=== PATIENT | female | born 1940 | race Caucasian/White ===

== ENCOUNTER 2020-02-27 10:32 | Outpatient (CLI) | payer OTHER, SELFPAY ==
[2020-02-27 11:16] LABS: Alanine Aminotransferase 38 U/L (4-35); Albumin Level 3.9 g/dL (3.5-5.1); Alkaline Phosphatase 126 U/L (38-126); Anion Gap 10.8 mmol/L (7-16); Aspartate Amino Transferase 47 U/L (14-36); Bilirubin,Total 0.4 mg/dL (0.2-1.3); Blood Urea Nitrogen 23 mg/dL (7-17); Carbon Dioxide 27 mmol/L (22-30); Chloride 105 mmol/L (98-107); Cholesterol 236 mg/dL (0-200); Estimated Glomerular Filt Rate 48; Glucose 108 mg/dL (65-105); HDL Direct 44 mg/dL; Potassium 3.8 mmol/L (3.4-5.0); Sodium 139 mmol/L (137-145); Triglycerides 198 mg/dL (<150)
[2020-02-27 11:20] LABS: Hemoglobin A1C 5.7 % (<5.7)
[2020-02-27 11:27] LABS: LDL Cholesterol Direct 146 mg/dL
[2020-02-27 11:41] LABS: Creatinine Urine 101.7 mg/dL
[2020-02-27 11:47] LABS: MALB Creatinine Ratio 43.3 mg/g (0-30)
[2020-02-27 11:58] LABS: Vitamin D 25 Hydroxy 50.9 ng/mL
== END 2020-02-27 10:33 | disposition home or self-care (01) ==
LOC: ANHLAB 10:33
PROVIDERS: PCP Internal Medicine; Visit Provider Nurse Practitioner
DX: E11.9 Type 2 diabetes mellitus without complications (principal); E78.5 Hyperlipidemia, unspecified; E55.9 Vitamin D deficiency, unspecified
CPT/HCPCS: 36415; 80053; 80061; 82043; 82306; 83036

== ENCOUNTER 2021-02-05 10:16 | Emergency (ER) | payer OTHER, SELFPAY ==
[2021-02-05] VITALS (9 sets, daily range): BP systolic 137–159; BP diastolic 56–75; PULSE 65–81; RESP 18–29; TEMP 37.1; O2SAT 94–98
--- NOTE | ~2021-02-05 | CT_ITS ---
EXAMINATION: CT abdomen pelvis wo con EXAM DATE: 02/05/2021 12:16 INDICATION: Abdominal pain. TECHNIQUE: Spiral CT of the abdomen and pelvis was performed without contrast. Axial, coronal and s agittal images of the abdomen and pelvis were reviewed. The dose-length product (DLP) for this exami [facility] was 261.45 mGy-cm. The exposure was tailored according to patient size (auto mA exposure cont rol), and iterative reconstruction (ASIR) was used as additional dose reduction technique. Comparison is made to prior examination from 09/29/2014. FINDINGS: Pancreatic head and unsafe calcifications, chronic pancreatitis. The liver, spleen, adrena l glands and pancreas are unremarkable. Mild gallbladder distention with hazy pericholecystic fat pl anes. Possible cholecystitis. No calcified cholelithiasis. Consider ultrasound for further evaluation . There is no nephrolithiasis or hydronephrosis. Scattered renal lesions consistent with cysts, larg est exophytic off the left kidney measuring 2.3 cm. The uterus is unremarkable. The bladder is unr emarkable. There is no retroperitoneal or pelvic lymphadenopathy. There is moderate scattered lyndsay riosclerotic disease. There are no findings to suggest appendicitis. There is mild to moderate sigmoid colonic diverticulos is. There is no adjacent inflammatory change to suggest diverticulitis. There is small sliding gastr oesophageal hiatal hernia. There is expected amount of colonic stool. No free intraperitoneal gas. There is chronic small left pleural effusion with pleural thickening and adjacent round atelecta sis. There are no osteoblastic or osteolytic lesions identified. IMPRESSION: 1. Indistinct gallbladder wall, possible acute cholecystitis. Recommend ultrasound. 2. Mild to moderate sigmoid diverticulosis. 3. Chronic small left pleural effusion, adjacent round atelectasis. 4. Chronic pancreatitis. Reviewed, dictated and finalized at location A. IMPRESSION: 1. Indistinct gallbladder wall, possible acute cholecystitis. Recommend ultras ound. 2. Mild to moderate sigmoid diverticulosis. 3. Chronic small left pleural effusion, adjacent round atelectasis. 4. Chronic pancreatitis.
--- NOTE | ~2021-02-05 | US_ITS ---
EXAMINATION: US right upper quadrant EXAM DATE: 02/05/2021 13:43 INDICATION: Abdominal pain, onset yesterday. Abnormal ultrasound on CT. TECHNIQUE: Multiple grayscale and Doppler images of the abdomen right upper quadrant were obtained (b y a technologist who performed the scan) and subsequently reviewed. There is no prior study for senait wright. FINDINGS: The pancreatic head and body are normal in appearance. The pancreatic tail is not visualized. The l iver has normal echogenicity and contour. There are no focal liver lesions identified. There is no evidence of intrahepatic biliary duct dilation. Portal venous flow was seen in the hepatopedal, nor mal direction and has normal Doppler waveform. No right-sided hydronephrosis. Common bile duct measures 4-5 mm, which is normal. The gallbladder wall is 3 mm in thickness, with ex pected amount of distention. This is nonspecific finding. No sonographic evidence of pericholecystic fluid. There is no cholelithiases. Technologist performing exam reports patient did not demonstrate sonographic Johnson's sign. Please note that this sign is less reliable in patients who have received pain medication. IMPRESSION: Gallbladder wall upper limits of normal in thickness. No cholelithiasis, pericholecystic fluid or sonographic Johnson sign demonstrated. Reviewed, dictated and finalized at location A. IMPRESSION: Gallbladder wall upper limits of normal in thickness. No cholelithi asis, pericholecystic fluid or sonographic Johnson sign demonstrated.
--- NOTE | ~2021-02-05 | XR_ITS ---
EXAMINATION: XR chest 2V EXAM DATE: 02/05/2021 12:07 INDICATION: Shortness of air. TECHNIQUE: Frontal and lateral projections of the chest obtained and reviewed. There is no prior sherwin dy for comparison. FINDINGS: The lungs are clear. There are no pleural effusions. Cardiac silhouette is prominent but magnified on this AP technique. There is no pneumothorax suspected. There is aortic arterioscleros is. There are bony degenerative changes. Right axillary surgical clips. Some chronic hyperinflation. IMPRESSION: 1. No acute cardiopulmonary findings. 2. Hyperinflation. Reviewed, dictated and finalized at location A.
[2021-02-05 10:58] LABS: Basophils Absolute Auto 0.1 K/mm3 (0.0-0.1); Eosinophils Absolute Auto 0.2 K/mm3 (0-0.3); Eosinophils Percent Auto 3.5 % (0-4.4); Hematocrit 36.9 % (37.0-47.0); Immature Granulocyte Absolute 0.04 K/mm3 (0.00-0.031); Immature Granulocyte Percent A 0.8 % (0-0.5); Lymphocytes Absolute Auto 0.86 K/mm3 (0.9-3.2); Lymphocytes Percent Auto 17.8 % (18.3-44.2); Mean Corpuscular HGB Conc 32.5 g/dl (32-36); Mean Corpuscular Hemoglobin 29.9 pg (26-34); Mean Corpuscular Volume 91.8 fl (80-100); Mean Platelet Volume 10.8 fl (7.4-10.4); Monocytes Absolute Auto 0.5 K/mm3 (0.1-0.6); Monocytes Percent Auto 10.8 % (2.6-8.5); Neutrophils Absolute Auto 3.2 K/mm3 (1.3-6.7); Neutrophils Percent Auto 66.1 % (45.5-73.1); Platelet Count Result 187 k/mm3 (150-375); Red Blood Count 4.02 M/mm3 (4.2-5.4); White Blood Count 4.8 K/mm3 (4.5-10.0)
[2021-02-05 11:13] LABS: Alanine Aminotransferase 31 U/L (4-35); Alkaline Phosphatase 161 U/L (38-126); Anion Gap 9 mmol/L (8-16); Aspartate Amino Transferase 34 U/L (14-36); Bilirubin,Total 0.4 mg/dL (0.2-1.3); Blood Urea Nitrogen 40 mg/dL (7-17); Calcium 9.4 mg/dL (8.4-10.2); Carbon Dioxide 24 mmol/L (22-30); Chloride 106 mmol/L (98-107); Estimated Glomerular Filt Rate 33; Glucose 102 mg/dL (65-105); Lipase 272 U/L (23-300); Potassium 4.5 mmol/L (3.4-5.0); Sodium 139 mmol/L (137-145)
--- NOTE | 2021-02-05 11:59 | ED.ABDPAIN ---
HPI - Abdominal Pain General Chief Complaint: Abdominal Pain Stated Complaint: L ABD PAIN Time Seen by Provider: 02/05/21 10:25 History of Present Illness HPI narrative: Patient is an 80-year-old female who presents ER with left-sided abdominal pain. Beginning over the last day. Feels like she needs to defecate but cannot. She also feels like it is pushing up on her diaphragm making it more difficult for her to breathe. No runny nose or sore throat or productive cough. No diarrhea. She has no nausea or vomiting. Has not found any alleviating factors. Related Data Home Medications Medication Instructions Recorded Confirmed aspirin 81 mg tablet,delayed 81 mg PO DAILY 07/11/19 07/31/19 release candesartan 02/05/21 carvedilol 02/05/21 hydrochlorothiazide 02/05/21 pantoprazole PO 02/05/21 simvastatin mg 02/05/21 sitagliptin [Januvia] mg 02/05/21 ursodiol 02/05/21 Allergies Allergy/AdvReac Type Severity Reaction Status Date / Time metformin Allergy Unknown Diarrhea Verified 02/05/21 10:36 Review of Systems Review of Systems: All systems reviewed & are unremarkable except as noted in HPI and below Constitutional: Constitutional: Denies chills, Denies fever(s) and Denies weakness ENT: Denies nasal congestion and Denies sore throat Cardiovascular: Cardiovascular: Denies chest pain and Denies radiating jaw, neck or arm pain Respiratory: Respiratory: Denies cough, Reports dyspnea and Denies wheezing Gastrointestinal: Gastrointestinal: Reports abdominal pain, Reports bloating, Reports constipation, Denies nausea and Denies vomiting [facility] Past Medical History Medical History (Updated 02/05/21 @ 14:13 by Thiago Mendieta MD) Chronic atrial fibrillation, unspecified CKD (chronic kidney disease), stage III COPD (chronic obstructive pulmonary disease) Essential hypertension Gastroesophageal reflux disease without esophagitis Mixed hyperlipidemia Panlobular emphysema Primary biliary cirrhosis Surgical History Surgical History (Updated 02/05/21 @ 12:05 by Thiago Mendieta MD) History of right mastectomy History of right-sided carotid endarterectomy Family History Family History (Updated 02/21/16 @ 23:19 by DOCTOR UNKNOWN) Sibling Family history of blood dyscrasia Cerebrovascular accident Family history of malignant neoplasm Patient's sister is Father Cerebrovascular accident Patient's father is Mother Family history of diabetes mellitus in first degree relative Patient's mother is Social History Social History Smoking packs per day: 1 Smoking cigarettes per day: 20.0 Years smoked: 65 Smoking pack-years: 65.00 Smoking status: Current every day smoker Tobacco type: cigarettes Alcohol intake: never Gender identity (if verbalized by the patient): Female Exam Narrative: Exam Narrative: GENERAL: Well-appearing, well-nourished, and in no acute distress. HEAD: Normocephalic, atraumatic. ENT: Mucous membranes moist. CHEST: Clear to auscultation. No respiratory distress. HEART: Regular rate and rhythm. Normal peripheral pulses. ABDOMEN: Soft, mild left mid abdominal tenderness with voluntary guarding, nondistended. EXTREMITIES: Normal range of motion. No edema. SKIN: Warm, dry, no rash. NEURO: Alert and oriented x3. PSYCH: Normal mood and affect. Course Course Emergency Course: Patient informed of results. Discharge home. Recommend increase water intake. Vital Signs Vital signs: Vital Signs Temperature 98.7 F 02/05/21 10:29 Pulse Rate 81 02/05/21 10:29 Respiratory Rate 18 02/05/21 10:29 Blood Pressure 153/67 H 02/05/21 10:29 Pulse Oximetry 95 02/05/21 10:29 Temperature 98.7 F 02/05/21 10:29 Pulse Rate 73 02/05/21 11:46 Respiratory Rate 22 H 02/05/21 11:46 Blood Pressure 137/56 L 02/05/21 11:46 Pulse Oximetry 94 0
--- NOTE | 2021-02-05 12:00 | PC.NURSE ---
Pt unable to provide urine sample at this time
[2021-02-05 13:11] LABS: Add Urine Microscopic? YES; Appearance Urine Clear (Clear); Bilirubin Urine Negative (Negative); Blood Urine Negative (Negative); Color Urine Yellow (Yellow); Glucose Urine UA Negative (Negative); Ketones Urine Negative (Negative); Leukocyte Esterase Ur Negative LEU/UL (Negative); Mucus Urine Rare /lpf; Nitrate Urine Negative (Negative); Protein Urine Negative (Negative); RBC Urine 0-2 /hpf (0-2); Specific Grav Ur 1.015 (1.001-1.035); Squamous Epithelial Cell Urine Rare /hpf (Few); Urobilinogen Urine Negative mg/dL (<2.0); WBC Urine 0-3 /hpf
== END 2021-02-05 14:41 | disposition home or self-care (01) ==
PROVIDERS: Emergency Provider Emergency Medicine; PCP Internal Medicine
DX: R10.9 Unspecified abdominal pain (principal); K57.30 Diverticulosis of large intestine without perforation or abscess without bleeding; K86.1 Other chronic pancreatitis; I48.91 Unspecified atrial fibrillation; J44.9 Chronic obstructive pulmonary disease, unspecified; I12.9 Hypertensive chronic kidney disease with stage 1 through stage 4 chronic kidney disease, or unspecified chronic kidney disease; N18.30 Chronic kidney disease, stage 3 unspecified; E78.5 Hyperlipidemia, unspecified; K21.9 Gastro-esophageal reflux disease without esophagitis
CPT/HCPCS: 36415; 71046; 74176; 76705; 80053; 81001; 83690; 85025; 99284

== ENCOUNTER 2022-10-31 15:39 | Observation (INO) | payer OTHER, SELFPAY ==
[2022-10-31] VITALS (20 sets, daily range): BP systolic 137–189; BP diastolic 66–86; PULSE 74–103; RESP 13–24; TEMP 36.6; O2SAT 96–100; BMI 20.6
--- NOTE | ~2022-10-31 | XR_ITS ---
EXAMINATION: XR chest 2V Exam Date/Time: 10/31/2022 16:47 CDT HISTORY: weakness Comparison: 02/05/2021. RESULT: Lines, tubes, and devices: Right axillary clips. Lungs and pleura: Senescent changes. Cardiomediastinal silhouette: Stable. Cardiomegaly. Other: No acute osseous or upper abdominal finding. IMPRESSION: No acute cardiopulmonary process. Reviewed, dictated and finalized at location K.
--- NOTE | ~2022-10-31 | CT_ITS ---
EXAMINATION: CT brain wo con DATE: 10/31/2022 16:57 INDICATION: fall . TECHNIQUE: Computed tomography (CT) of the head was performed without intravenous contrast. The mA wa s adjusted according to patient size. Iterative reconstruction technique was employed. The dose-lengt h product was 605.33 mGy-cm. COMPARISON: None. FINDINGS: No acute intracranial hemorrhage or extra-axial fluid collection. No hydrocephalus, mass, or herniation. No acute ischemic infarct. Unremarkable dural venous sinus attenuation. No acute osseous abnormality. The aerated spaces are clear. Moderate atrophy and chronic white matter change. Atherosclerotic intracranial calcification. Left ba waqar ganglia calcification. Old right basal ganglia lacunar infarct. IMPRESSION: No acute intracranial process. Reviewed, dictated and finalized at location K.
--- NOTE | 2022-10-31 15:38 | ECG_ITS ---
Measurements Intervals [place] Rate: 96 P: 60 PA: 174 QRS: 28 QRSD: 137 T: 117 QT: 397 QTc: 502 Interpretive Statements SINUS RHYTHM WITH OCCASIONAL SUPRAVENTRICULAR PREMATURE COMPLEXES LEFT BUNDLE BRANCH BLOCK ABNORMAL ECG NO PREVIOUS ECG AVAILABLE FOR COMPARISON Electronically Signed On 11-01-2022 13:36:02 CDT by Dustin Sun M.D.
--- NOTE | 2022-10-31 15:54 | ED.GENADULT ---
HPI - General Adult General Chief complaint: Weakness Stated complaint: dizzy Time Seen by Provider: 10/31/22 15:46 History of Present Illness HPI narrative: 82-year-old female presented the emergency department for evaluation after having a ground-level fall yesterday. Patient apparently had a ground-level fall at 9 AM yesterday but was unable to get off the floor. Patient was ultimately able to crawl for assistance. When EMS arrived patient was able to ambulate without difficulty. EMS states that the house was in deplorable conditions and was populated by multiple dogs and there was a large amount of dog feces around the house. Patient states that she lives on her own takes care of herself. Patient does admit that she could use some additional assistance. Family was present during the exam. Patient does have a previous history of breast cancer, hypertension, high cholesterol and type 2 diabetes Related Data Home Medications Medication Instructions Recorded Confirmed aspirin 81 mg tablet,delayed 81 mg PO DAILY 07/11/19 07/31/19 release (Aspir-) candesartan 32 mg tablet 02/05/21 carvedilol 25 mg tablet 02/05/21 hydrochlorothiazide 12.5 mg capsule 02/05/21 pantoprazole 40 mg tablet,delayed PO 02/05/21 release simvastatin 80 mg tablet mg 02/05/21 sitagliptin phosphate 100 mg mg 02/05/21 tablet (Januvia) ursodiol 250 mg tablet 02/05/21 Allergies Allergy/AdvReac Type Severity Reaction Status Date / Time metformin Allergy Unknown Diarrhea Verified 10/31/22 16:08 Review of Systems Review of Systems: All systems reviewed & are unremarkable except as noted in HPI and below PMFSH Past Medical History Medical History (Updated 10/31/22 @ 20:26 by Jose Daniel East MD) Chronic atrial fibrillation, unspecified CKD (chronic kidney disease), stage III COPD (chronic obstructive pulmonary disease) Essential hypertension Gastroesophageal reflux disease without esophagitis Mixed hyperlipidemia Panlobular emphysema Primary biliary cirrhosis Surgical History Surgical History (Updated 02/05/21 @ 12:05 by Thiago Mendieta MD) History of right mastectomy History of right-sided carotid endarterectomy Family History Family History Sibling Family history of blood dyscrasia Cerebrovascular accident Family history of malignant neoplasm Patient's sister is Father Cerebrovascular accident Patient's father is Mother Family history of diabetes mellitus in first degree relative Patient's mother is Social History Social History Years smoked: 65 Smoking status: Current every day smoker Tobacco type: cigarettes Alcohol intake: never Substance use: never Substance use type: does not use Lack of Transportation: No Lack of Food: Never True Current Housing: I Have Housing Concerned About Future Housing: No Difficulty Paying Gas/Electric Bills: No Difficulty Paying for Meds: No Currently Unemployed: No Education: Decline to Answer Difficulty w/ Childcare or Family Care: No Gender identity (if verbalized by the patient): Female Spiritual care concerns: No Exam Narrative: APPEARANCE: Cachectic appearing HEAD: normocephalic, atraumatic. EYES: PERRLA/EOMI, conjunctivae clear. NOSE: Normal no drainage EARS:TMS clear with good light reflex. THROAT: Pharynx clear, no exudate. NECK: Supple. No adenopathy, no masses. RESPIRATORY: Airway patent, respirations nonlabored. Clear to auscultation bilaterally, no rales, rhonchi, wheezing. CARDIOVASCULAR: Regular rate and rhythm without murmurs rubs or gallops. ABDOMINAL: Soft, nontender, nondistended, normal bowel sounds MUSCULOSKELETAL: Moves all extremities. Strength/ROM intact, No edema, No calf tenderness. NEURO: Alert. Cranial nerves II through XII intact. Grossly intact
[2022-10-31 15:58] LABS: Basophils Absolute Auto 0.1 K/mm3 (0.0-0.1); Basophils Percent Auto 1.1 % (0.2-1.2); Eosinophils Absolute Auto 0.1 K/mm3 (0-0.3); Eosinophils Percent Auto 1.8 % (0-4.4); Hematocrit 44.4 % (37.0-47.0); Immature Granulocyte Absolute 0.01 K/mm3 (0.00-0.031); Immature Granulocyte Percent A 0.2 % (0-0.5); Lymphocytes Absolute Auto 0.77 K/mm3 (0.9-3.2); Lymphocytes Percent Auto 17.3 % (18.3-44.2); Mean Corpuscular HGB Conc 31.5 g/dl (32-36); Mean Corpuscular Hemoglobin 29.4 pg (26-34); Mean Corpuscular Volume 93.1 fl (80-100); Mean Platelet Volume 10.7 fl (7.4-10.4); Monocytes Absolute Auto 0.4 K/mm3 (0.1-0.6); Neutrophils Absolute Auto 3.1 K/mm3 (1.3-6.7); Neutrophils Percent Auto 70.6 % (45.5-73.1); Platelet Count Result 292 k/mm3 (150-375); Red Blood Count 4.77 M/mm3 (4.2-5.4); Red Cell Distribution Width 13.3 % (11.5-14.5); White Blood Count 4.5 K/mm3 (4.5-10.0)
[2022-10-31 16:07] LABS: Alanine Aminotransferase 38 U/L (6-35); Albumin Level 3.6 g/dL (3.5-5.1); Alkaline Phosphatase 538 U/L (38-126); Anion Gap 10 mmol/L (8-16); Aspartate Amino Transferase 42 U/L (14-36); Bilirubin,Total 0.9 mg/dL (0.2-1.3); Blood Urea Nitrogen 18 mg/dL (7-17); Carbon Dioxide 25 mmol/L (22-30); Chloride 104 mmol/L (98-107); Creatine Kinase 53 U/L (30-135); Estimated Glomerular Filt Rate > 60; Glucose 111 mg/dL (65-110); Potassium 3.5 mmol/L (3.4-5.0); Sodium 139 mmol/L (137-145)
[2022-10-31 16:53] LABS: Appearance Urine Turbid (Clear); Bacteria Urine None Seen /hpf; Bilirubin Urine 2+ (Negative); Blood Urine Negative (Negative); Color Urine Dark Yellow (Yellow); Glucose Urine UA Negative (Negative); Ketones Urine Trace mg/dL (Negative); Leukocyte Esterase Ur Trace LEU/UL (Negative); Mucus Urine Present /lpf; Nitrate Urine Negative (Negative); Non Pathogenic Casts >20; Protein Urine 3+ mg/dL (Negative); Squamous Epithelial Cell Urine Occasional /hpf (Few); WBC Urine 0-5 /hpf; pH Urine 5.5 (5.0-9.0)
[2022-10-31 16:56] LABS: Add Urine Microscopic? YES
--- NOTE | 2022-10-31 18:00 | PM.IMHP ---
H&P: HPI History of Present Illness Date/Time: 10/31/22 18:00 Chief Complaint: Fall. Narrative: This is an 82-year-old female smoker with history of right-sided breast cancer status post lumpectomy and anti hormone therapy at age 68, primary biliary cirrhosis, hypertension, dyslipidemia, type 2 diabetes mellitus, and GERD who presented to the emergency department via EMS from home for evaluation after a fall. Patient provides the following history. Her son Darien and daughter Alba provides additional history, with the patient's permission. She lives in her own home and over the last 1 to 1.5 year she has had increasing difficulties keeping up the house and caring for herself. It does not sound as though she is cooking or cleaning very often and she is not cleaning up after her dog, Turtle. 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 In any event she has lost about 60 lb in the same timeframe and she has become increasingly weak. She has a walker at home but does not use it and has a history of falls. She recently subscribed to [employer] and her children received a phone call today at about 15:15 that the patient had used the alert button after a fall. She cannot provide me any further information as to how she fell aside from the fact that she felt a bit weak and dizzy. Luckily she sustained no injuries in the fall. Aside for some weakness, she has no complaints. She specifically denies headache, vertigo, auditory visual changes, focal weakness, paresthesias, chest and pleuritic pain, shortness a breath, nausea, vomiting, diarrhea, and dysuria. She states her appetite is good, despite the weight loss and her children saying she does not eat well, and she is hungry at this time. Blood pressures have been consistently in the 150s to 160 systolic since arrival to the ED. The patient tells me that she has not taken any medications for about 3 to 4 years and she has not seen a doctor in that time frame either. Her CBC and BMP were quite unremarkable. LFTs were significant for a total bilirubin 0.9, AST 42, ALT 38, alkaline phosphatase 538. Brain CT and chest x-ray showed no acute processes. She is being admitted overnight for close monitoring and PT/OT evaluation as she will likely need rehab as she is not safe to go home at this juncture. Review of Systems Review of Systems: Twelve systems were reviewed and are negative except for as per HPI. [facility] Past Medical History Medical History (Updated 10/31/22 @ 23:31 by Kiesha Guevara PA-C) Cancer of right breast Status post lumpectomy and antiestrogen therapy. Chronic kidney disease Chronic obstructive pulmonary disease Essential hypertension Gastroesophageal reflux disease without esophagitis Mixed hyperlipidemia Panlobular emphysema Paroxysmal atrial fibrillation Primary biliary cirrhosis Tobacco use Tobacco use disorder Type 2 diabetes mellitus Surgical History Surgical History History of right mastectomy History of right-sided carotid endarterectomy Family History Family History Sibling Family history of blood dyscrasia Cerebrovascular accident Family history of malignant neoplasm Patient's sister is Father Cerebrovascular accident Patient's father is Mother Family history of diabetes mellitus in first degree relative Patient's mother is Social History Social History (Updated 10/31/22 @ 23:26 by Kiesha Guevara PA-C) Social History: Surrogate medical decision maker: Cora Sanderson, daughter. Code status: Full code. Years smoked: 65 Smoking status: Current every day smoker Tobacco type: cigarettes Alcohol intake: never Substance use: never Substance use type: does not use Lack of Transportation: No
--- NOTE | 2022-10-31 19:46 | ADMGEN ---
This patient, Ariadna Anders, was admitted to Medical Room 347-. Patient/family oriented to hospital policies and general routines including ID bracelet, bed and alarms, visiting hours, pain management, procedures, bathroom and other care routines, personal items, smoking policy, room service/diet, and visiting hours. Information on how to activate the Rapid Response Team has been discussed. Patient/Family are encouraged to report perceived risks to care and to ask questions if they do not understand what they are told or what they should do.
[2022-10-31 21:26] LABS: Glucose Point of Care 208 mg/dl (65-105)
[2022-11-01 04:48] LABS: Hematocrit 35.1 % (37.0-47.0); Hemoglobin 11.2 g/dL (12.0-15.0); Mean Corpuscular HGB Conc 31.9 g/dl (32-36); Mean Corpuscular Volume 90.9 fl (80-100); Mean Platelet Volume 10.7 fl (7.4-10.4); Platelet Count Result 221 k/mm3 (150-375); Red Blood Count 3.86 M/mm3 (4.2-5.4); Red Cell Distribution Width 13.3 % (11.5-14.5)
[2022-11-01 04:58] LABS: Alanine Aminotransferase 31 U/L (6-35); Albumin Level 2.7 g/dL (3.5-5.1); Alkaline Phosphatase 381 U/L (38-126); Anion Gap 5 mmol/L (8-16); Aspartate Amino Transferase 37 U/L (14-36); Bilirubin,Total 0.6 mg/dL (0.2-1.3); Blood Urea Nitrogen 21 mg/dL (7-17); Calcium 7.9 mg/dL (8.4-10.2); Carbon Dioxide 28 mmol/L (22-30); Chloride 104 mmol/L (98-107); Estimated Glomerular Filt Rate > 60; Glucose 75 mg/dL (65-110); Magnesium 1.6 mg/dL (1.6-2.3); Potassium 3.2 mmol/L (3.4-5.0); Sodium 137 mmol/L (137-145)
[2022-11-01 05:46] LABS: Thyroid Stimulating Hormone Reflex 0.987 uIU/mL (0.465-4.68)
[2022-11-01 06:00] VITALS: BP 126/69; PULSE 75; RESP 20; TEMP 36.4; O2SAT 99
[2022-11-01 06:02] LABS: Hemoglobin A1C 5.1 % (<5.7)
[2022-11-01 08:27] LABS: Glucose Point of Care 96 mg/dl (65-105)
--- NOTE | 2022-11-01 11:46 | P.PNIM_ITS ---
Progress Note: A&P Assessment and Plan (1) Fall from ground level: Code(s): W18.30XA - Fall on same level, unspecified, initial encounter Status: Acute Assessment and Plan: The patient had a fall from ground level though she cannot really tell me exactly how or why she fell. She denies head trauma and loss of consciousness and there were no obvious injuries. Children indicate that she has had falls and has not been using her walker at home. Initiate fall precautions. PT/OT consulted. (2) Generalized weakness: Code(s): R53.1 - Weakness Status: Acute Assessment and Plan: Likely due to a combination of factors. Children are concerned that she may have underlying dementia as she is sometimes argumentative, defensive, and she is not keeping up with her household or her health which is unusual for her. At the very early she will need rehab, may need placement. (3) Adult failure to thrive: Code(s): R62.7 - Adult failure to thrive Status: Acute Assessment and Plan: She has gotten progressively more debilitated over the past 1.5 years. She has lost about 60 lb in the same time frame. It does not seem as though she is cooking for herself however today when offered meal she reported that she was eager to eaten very hungry. Plan is as detailed above. (4) Elevated LFTs: Code(s): R79.89 - Other specified abnormal findings of blood chemistry Status: Acute Assessment and Plan: She carries a diagnosis of primary biliary cirrhosis. She has not had any of her medical problems treated over the past 3 to 4 years. Abdominal exam is benign and the elevated AST, ALT, and more substantially elevated alkaline phosphatase may be related to the same. Total bilirubin was normal. She has a history of breast cancer but there was no evidence of bony mets, at least on chest x-ray. (5) Proteinuria: Code(s): R80.9 - Proteinuria, unspecified Status: Acute Assessment and Plan: Normal renal function. No evidence of UTI on urinalysis. She is not edematous for volume overloaded. There are no significant electrolyte abnormalities. Check random total urine protein. (6) Tobacco use disorder: Code(s): F17.200 - Nicotine dependence, unspecified, uncomplicated Status: Acute Assessment and Plan: She continues to smoke, maybe 5 to 6 a day though she smoked up to 2 packs a day since the age of 10. She denies the need for nicotine patch. Does not seem interested in quitting. (7) Type 2 diabetes mellitus: Code(s): E11.9 - Type 2 diabetes mellitus without complications Status: Acute Assessment and Plan: She has not been on medications for years. Initiate sliding scale insulin, Accu- Cheks, and hypoglycemic protocol. Check A1c. (8) Paroxysmal atrial fibrillation: Code(s): I48.0 - Paroxysmal atrial fibrillation Status: Acute Assessment and Plan: Currently sounds to be an a regular rhythm. Brain CT showed no evidence of stroke. Likely not a candidate for anticoagulation as she is a fall risk. (9) Chronic obstructive pulmonary disease: Code(s): J44.9 - Chronic obstructive pulmonary disease, unspecified Status: Acute Assessment and Plan: No evidence of acute exacerbation. (10) Primary biliary cirrhosis: Code(s): K74.3 - Primary biliary cirrhosis Status: Acute Assessment and Plan: Not treated for many years. LFTs as detailed above. Plan Nursing staff is to call the patien
[2022-11-01 13:00] LABS: Glucose Point of Care 250 mg/dl (65-105)
[2022-11-01] MEDS: INSULIN ASPART (*BKC) 100 UNITS/ML SUB-Q (13:06)
[2022-11-01] MEDS: POTASSIUM CHLORIDE 20 MEQ PACKET (FOR LIQUID) 40 MEQ PO (13:17)
[2022-11-01 14:00] VITALS: BP 137/67; PULSE 86; RESP 14; TEMP 36.6; O2SAT 100
[2022-11-01 14:14] LABS: Total Protein Urine Random 309 mg/dL
--- NOTE | 2022-11-01 16:21 | PC.NURSE ---
Patients daughter came to visit and stated patient has not filled or taken any medications in 3-4 years. Jose notified. Holding medications at this time.
--- NOTE | 2022-11-01 16:29 | PC.NURSE ---
Spoke with [facility] in [place] regarding patient's medications. Patient has not taken/filled medications since February 2021.
[2022-11-01 17:53] LABS: Glucose Point of Care 148 mg/dl (65-105)
[2022-11-01 20:00] VITALS: BP 136/72; PULSE 101
[2022-11-01 20:59] VITALS: BP 141/77; PULSE 106; RESP 22; TEMP 36.4; O2SAT 97
[2022-11-01 21:08] LABS: Glucose Point of Care 129 mg/dl (65-105)
[2022-11-02 05:33] VITALS: BP 147/75; PULSE 105; RESP 22; TEMP 36.5; O2SAT 94
[2022-11-02 05:52] LABS: Anion Gap 4 mmol/L (8-16); Blood Urea Nitrogen 22 mg/dL (7-17); Calcium 7.8 mg/dL (8.4-10.2); Carbon Dioxide 29 mmol/L (22-30); Chloride 103 mmol/L (98-107); Estimated Glomerular Filt Rate > 60; Glucose 129 mg/dL (65-110); Potassium 3.4 mmol/L (3.4-5.0); Sodium 136 mmol/L (137-145)
[2022-11-02 09:25] LABS: Glucose Point of Care 140 mg/dl (65-105)
--- NOTE | 2022-11-02 10:20 | PC.NURSE ---
Spoke with hospitalist Jose in regards to patients medications and not have taken them for several years. Jose okayed to discontinue oral medications at this time.
--- NOTE | 2022-11-02 10:55 | PC.NURSE ---
gave update to Adult Protective Services
[2022-11-02 12:04] VITALS: BMI 17.1
[2022-11-02 12:04] LABS: Glucose Point of Care 147 mg/dl (65-105)
[2022-11-02] MEDS: POTASSIUM CHLORIDE 20 MEQ PACKET (FOR LIQUID) 40 MEQ PO (12:25)
[2022-11-02 15:27] VITALS: BP 124/61; PULSE 75; RESP 16; TEMP 36.5; O2SAT 100
--- NOTE | 2022-11-02 15:32 | PM.DS ---
DS: Admitting Diagnosis Discharge Date 11/02/22 Admitting Diagnosis fall, weakness DS: Discharge Diagnosis Discharge Diagnosis (1) Fall from ground level: Code(s): W18.30XA - Fall on same level, unspecified, initial encounter Status: Acute Assessment and Plan: The patient had a fall from ground level though she cannot really tell me exactly how or why she fell. She denies head trauma and loss of consciousness and there were no obvious injuries. Children indicate that she has had falls and has not been using her walker at home. Initiate fall precautions. PT/OT consulted. (2) Generalized weakness: Code(s): R53.1 - Weakness Status: Acute Assessment and Plan: Likely due to a combination of factors. Children are concerned that she may have underlying dementia as she is sometimes argumentative, defensive, and she is not keeping up with her household or her health which is unusual for her. At the very early she will need rehab, may need placement. (3) Adult failure to thrive: Code(s): R62.7 - Adult failure to thrive Status: Acute Assessment and Plan: She has gotten progressively more debilitated over the past 1.5 years. She has lost about 60 lb in the same time frame. It does not seem as though she is cooking for herself however today when offered meal she reported that she was eager to eaten very hungry. Plan is as detailed above. (4) Elevated LFTs: Code(s): R79.89 - Other specified abnormal findings of blood chemistry Status: Acute Assessment and Plan: She carries a diagnosis of primary biliary cirrhosis. She has not had any of her medical problems treated over the past 3 to 4 years. Abdominal exam is benign and the elevated AST, ALT, and more substantially elevated alkaline phosphatase may be related to the same. Total bilirubin was normal. She has a history of breast cancer but there was no evidence of bony mets, at least on chest x-ray. (5) Proteinuria: Code(s): R80.9 - Proteinuria, unspecified Status: Acute Assessment and Plan: Normal renal function. No evidence of UTI on urinalysis. She is not edematous for volume overloaded. There are no significant electrolyte abnormalities. Check random total urine protein. (6) Tobacco use disorder: Code(s): F17.200 - Nicotine dependence, unspecified, uncomplicated Status: Acute Assessment and Plan: She continues to smoke, maybe 5 to 6 a day though she smoked up to 2 packs a day since the age of 10. She denies the need for nicotine patch. Does not seem interested in quitting. (7) Type 2 diabetes mellitus: Code(s): E11.9 - Type 2 diabetes mellitus without complications Status: Acute Assessment and Plan: She has not been on medications for years. Initiate sliding scale insulin, Accu-Cheks, and hypoglycemic protocol. Check A1c. (8) Paroxysmal atrial fibrillation: Code(s): I48.0 - Paroxysmal atrial fibrillation Status: Acute Assessment and Plan: Currently sounds to be an a regular rhythm. Brain CT showed no evidence of stroke. Likely not a candidate for anticoagulation as she is a fall risk. (9) Chronic obstructive pulmonary disease: Code(s): J44.9 - Chronic obstructive pulmonary disease, unspecified Status: Acute Assessment and Plan: No evidence of acute exacerbation. (10) Primary biliary cirrhosis: Code(s): K74.3 - Primary biliary cirrhosis Status: Acute Assessment and Plan: Not treated for many years. LFTs as detailed above. Plan Nursing staff is to call the patient's pharmacy in the morning. Several medications listed on the medication reconciliation list however the patient's children history me that she has not seen a doctor for 3 to 4 years and she has not been taking any medications since that time. Thus will hold on initiating any of these medications for now.
--- NOTE | 2022-11-02 16:01 | PC.NURSE ---
Called [employer] to give report to the nurse that will be taking patient. Spoke to dental receptionist and was sent to an automated system to leave a message. Left voicemail with facility.
[2022-11-02 17:16] LABS: EDCOVIDSCREEN Negative (Negative)
[2022-11-02 17:29] LABS: Glucose Point of Care 72 mg/dl (65-105)
[2022-11-02 19:50] VITALS: BP 145/67; PULSE 82; RESP 16; TEMP 37; O2SAT 99
[2022-11-02 19:55] VITALS: BP 148/62
[2022-11-02 21:38] LABS: Glucose Point of Care 118 mg/dl (65-105)
== END 2022-11-02 21:34 ==
LOC: ANHED 17:46 → ANH3MED 22:33
PROVIDERS: Physician Assistant; Admitting Provider Internal Medicine; Emergency Provider Emergency Medicine; PCP Internal Medicine; Visit Provider Chiropractor
DX: R53.1 Weakness (principal); W18.30XA Fall on same level, unspecified, initial encounter; R62.7 Adult failure to thrive; R79.89 Other specified abnormal findings of blood chemistry; R80.9 Proteinuria, unspecified; I12.9 Hypertensive chronic kidney disease with stage 1 through stage 4 chronic kidney disease, or unspecified chronic kidney disease; E11.22 Type 2 diabetes mellitus with diabetic chronic kidney disease; N18.30 Chronic kidney disease, stage 3 unspecified; Z20.822 Contact with and (suspected) exposure to COVID-19; I48.0 Paroxysmal atrial fibrillation; J44.9 Chronic obstructive pulmonary disease, unspecified; K74.3 Primary biliary cirrhosis; E78.5 Hyperlipidemia, unspecified; R29.6 Repeated falls; R42 Dizziness and giddiness; K21.9 Gastro-esophageal reflux disease without esophagitis; Z68.1 Body mass index [BMI] 19.9 or less, adult; R94.31 Abnormal electrocardiogram [ECG] [EKG]; I44.7 Left bundle-branch block, unspecified; Z90.11 Acquired absence of right breast and nipple; F17.210 Nicotine dependence, cigarettes, uncomplicated; Z85.3 Personal history of malignant neoplasm of breast; Z79.82 Long term (current) use of aspirin; Z79.85 Long-term (current) use of injectable non-insulin antidiabetic drugs; Z79.899 Other long term (current) drug therapy; Z83.3 Family history of diabetes mellitus
CPT/HCPCS: 36415; 70450; 71046; 80048; 80053; 81001; 81050; 82550; 82948; 83036; 83735; 84156; 84443; 85025; 85027; 87426; 93005; 97161; 97166; 99285; A9270; C9803; G0378; J1815

== ENCOUNTER 2023-01-03 12:28 | Inpatient (IN) | payer MEDICARE, SELFPAY ==
[2023-01-03] VITALS (21 sets, daily range): BP systolic 65–104; BP diastolic 35–56; PULSE 82–110; RESP 26–41; TEMP 36.6–37.3; O2SAT 87–99
--- NOTE | ~2023-01-03 | XR_ITS ---
XR chest 1V portable 01/03/2023 13:44 Indication: Dyspnea Procedure: AP portable chest Comparison: Comparison to multiple prior studies sequentially, with oldest reviewed study dated 08/05. Findings: Cardiomegaly with mild interstitial edema. No pleural effusion or pneumothorax. No acute os seous abnormality. Impression: 1: Cardiomegaly with mild interstitial edema. Reviewed, dictated and finalized at location A. Impression: 1: Cardiomegaly with mild interstitial edema.
--- NOTE | 2023-01-03 12:41 | ED.AMS ---
HPI - Altered Mental Status General Chief Complaint: Altered Mental Status Stated Complaint: AMS, LOW O2 Source: family and EMS Mode of arrival: EMS Limitations: altered mental status and clinical condition History of Present Illness HPI narrative: 82 years old white female came from [facility] by ambulance because of low oxygen this morning. Patient received a breathing treatment without any improvement. 911 was called. On arrival to the ED, patient is awake, alert to her name and age only. Denying any symptoms. Blood pressure on arrival is 83/42, pulse 109, respiration 26/min temperature 37.3. IV fluids started immediately, septic protocol ordered. Patient's son at the bedside who is telling me that patient been going to spiral down over the last few months, malnourished, failure to thrive. Related Data Home Medications Medication Instructions Recorded Confirmed aspirin 81 mg tablet,delayed 81 mg PO DAILY 07/11/19 10/31/22 release (Aspir-) candesartan 32 mg tablet (Atacand) 32 mg PO DAILY 02/05/21 10/31/22 carvedilol 25 mg tablet (Coreg) 25 mg PO DAILY 02/05/21 10/31/22 hydrochlorothiazide 12.5 mg capsule 12.5 mg PO DAILY 02/05/21 10/31/22 pantoprazole 40 mg tablet,delayed 40 mg PO DAILY 02/05/21 10/31/22 release (Protonix) simvastatin 80 mg tablet 80 mg PO DAILY 02/05/21 10/31/22 sitagliptin phosphate 100 mg 100 mg PO DAILY 02/05/21 10/31/22 tablet (Januvia) ursodiol 250 mg tablet (NOEL 250) 250 mg PO DAILY 02/05/21 10/31/22 Allergies Allergy/AdvReac Type Severity Reaction Status Date / Time metformin Allergy Unknown Diarrhea Verified 01/03/23 14:07 Review of Systems Review of Systems: ROS unobtainable: Yes unobtainable due to medical condition and unobtainable due to mental status PMFSH Past Medical History Medical History Cancer of right breast Status post lumpectomy and antiestrogen therapy. Chronic kidney disease Chronic obstructive pulmonary disease Essential hypertension Gastroesophageal reflux disease without esophagitis Mixed hyperlipidemia Panlobular emphysema Paroxysmal atrial fibrillation Primary biliary cirrhosis Tobacco use Tobacco use disorder Type 2 diabetes mellitus Surgical History Surgical History History of right mastectomy History of right-sided carotid endarterectomy Family History Family History Sibling Family history of blood dyscrasia Cerebrovascular accident Family history of malignant neoplasm Patient's sister is Father Cerebrovascular accident Patient's father is Mother Family history of diabetes mellitus in first degree relative Patient's mother is Social History Social History Social History: Surrogate medical decision maker: Cora Sanderson, daughter. Code status: Full code. Years smoked: 65 Smoking status: Current every day smoker Tobacco type: cigarettes Alcohol intake: never Substance use: never Substance use type: does not use Lack of Transportation: No Lack of Food: Never True Current Housing: I Have Housing Concerned About Future Housing: No Difficulty Paying Gas/Electric Bills: No Difficulty Paying for Meds: No Currently Unemployed: No Education: Decline to Answer Difficulty w/ Childcare or Family Care: No Additional living arrangements comments: Patient lives in her own home in [place]. She is . Has 2 sons and 2 daughters. Spiritual care concerns: No Exam Narrative: General appearance: Well-developed, malnourished, frail, tachypneic Skin: Normal color Head: Normocephalic, nontraumatic Eyes: Clear conjunctiva ENT: Dry oral cavity Neck: Supple, nontender Chest and respiratory: Airway patent, no respiratory distress, no accessory
--- NOTE | 2023-01-03 12:43 | ECG_ITS ---
Measurements Intervals [place] Rate: 89 P: 57 MO: 181 QRS: 21 QRSD: 146 T: 152 QT: 390 QTc: 477 Interpretive Statements SINUS RHYTHM WITH OCCASIONAL SUPRAVENTRICULAR PREMATURE COMPLEXES LEFT BUNDLE BRANCH BLOCK [120+ ms QRS DURATION, 80+ ms Q/S IN V1/V2, 85+ ms R IN I/aVL/V5/V6] ABNORMAL ECG COMPARED TO ECG 10/31/2022 15:49:02 NO SIGNIFICANT CHANGES Electronically Signed On 01-04-2023 11:13:59 CDT by Ke Rich M.D.
[2023-01-03] MEDS: SODIUM CHLORIDE 0.9% 999 ML IV CONT ×2 (12:54→14:05)
[2023-01-03 12:58] LABS: Base Excess ABG -9.9 mEq/l (+/-2.0); Fractional Inspired Oxygen 26 %; HCO3 ABG 13.3 mEq/l (22.0-26.0); Oxygen Content ABG 11.5 %vol (16.0-22.0); Oxygen Saturation ABG 94.6 % (95.0-100.0); Oxyhemoglobin 91.1 % THb (90.0-100.0); PO2 ABG 69.8 mmHg (80.0-100.0); PO2 FiO2 Ratio Arterial Blood 2.68 %; Total Hemoglobin 8.9 g/dL (12.0-18.0); pH ABG 7.408 (7.350-7.450)
[2023-01-03 13:00] LABS: Device NASAL CANNULA; Liters per Minute 1.5 LPM; Modified Allen's Test Pass; PCO2 ABG 21.6 mmHg (35.0-45.0); Site Drawn LEFT RADIAL
[2023-01-03 13:03] LABS: Hematocrit 24.9 % (37.0-47.0); Immature Platelet Fraction Pct 5.7 % (0.9-11.2); Mean Corpuscular HGB Conc 32.1 g/dl (32-36); Mean Corpuscular Volume 90.2 fl (80-100); Mean Platelet Volume 11.6 fl (7.4-10.4); Platelet Count Result 94 k/mm3 (150-375); Red Blood Count 2.76 M/mm3 (4.2-5.4); White Blood Count 7.1 K/mm3 (4.5-10.0)
[2023-01-03 13:12] LABS: INR 1.2; Prothrombin Time 15.6 Seconds (11.1-14.7)
[2023-01-03 13:13] LABS: Partial Thromboplastin Time 30.2 SECONDS (22.3-36.8)
[2023-01-03 13:21] LABS: NT Pro B Type Natriuretic Pept > 30000 pg/mL (19.9-100)
[2023-01-03 13:39] LABS: Lactic Acid Reflex 5.3 mmol/L (0.7-2.0)
[2023-01-03 13:40] LABS: Influenza A QL RT-PCR Negative (Negative); Influenza B QL RT-PCR Negative (Negative); SARS-CoV-2 RNA PCR Negative (Negative)
[2023-01-03 13:52] LABS: Alanine Aminotransferase 58 U/L (6-35); Albumin Level 2.2 g/dL (3.5-5.1); Alkaline Phosphatase 459 U/L (38-126); Anion Gap 13 mmol/L (8-16); Aspartate Amino Transferase 135 U/L (14-36); Bilirubin,Total 1.9 mg/dL (0.2-1.3); Blood Urea Nitrogen 73 mg/dL (7-17); CRP 7.9 mg/dL (<1.0); Calcium 6.4 mg/dL (8.4-10.2); Carbon Dioxide 14 mmol/L (22-30); Chloride 106 mmol/L (98-107); Estimated CRCL calculation 10 ml/min; Estimated Glomerular Filt Rate 14; Glucose 79 mg/dL (65-110); Potassium 3.4 mmol/L (3.4-5.0); Sodium 133 mmol/L (137-145)
[2023-01-03 14:04] LABS: Band Neutrophils Percent 18 % (0-6); Lymphocytes Absolute Manual 0.14 K/mm3 (1.1-4.5); Metamyelocytes Percent 7 %; Myelocytes Percent 1 %; Neutrophils Absolute Manual 6.39 K/mm3 (1.7-7.2); Neutrophils Percent Manual 72 % (46-73); Platelet Estimate Decreased (Adequate); Total Cells Counted 100
[2023-01-03 14:05] LABS: Schistocytes None Seen (NORMAL)
[2023-01-03 14:13] LABS: Troponin I 0.455 ng/mL (0.000-0.034)
[2023-01-03 14:27] LABS: Add Urine Microscopic? YES; Appearance Urine Cloudy (Clear); Bacteria Urine None Seen /hpf; Bilirubin Urine Negative (Negative); Blood Urine Trace (Negative); Color Urine Yellow (Yellow); Glucose Urine UA Negative (Negative); Ketones Urine Negative (Negative); Leukocyte Esterase Ur Negative LEU/UL (Negative); Need Manual Microscopic Reviewed; Nitrate Urine Negative (Negative); Non Pathogenic Casts >20; Protein Urine 2+ mg/dL (Negative); RBC Urine 0-2 /hpf (0-2); Specific Grav Ur 1.011 (1.001-1.035); Squamous Epithelial Cell Urine Many /hpf (Few); Urobilinogen Urine 0.2 mg/dL (<2.0); WBC Urine 0-5 /hpf; pH Urine 5.5 (5.0-9.0)
[2023-01-03] MEDS: SODIUM CHLORIDE 0.9% IV 1,000 ML 999 ML IV CONT (14:52)
[2023-01-03] MEDS: PIPERACILLN/TAZ 3.375GM/NS50ML 3.375 GM/50 ML BAG IVPB (14:53)
[2023-01-03] MEDS: levoFLOXacin 500 MG/D5W 100 ML 500 MG/100 ML BAG 100 MG IVPB (14:53)
--- NOTE | 2023-01-03 15:13 | PC.NURSE ---
Dr. Davis VO stop Antibiotics and fluids for pt family request to make pt comfort measures only.l
[2023-01-03] MEDS: ONDANSETRON INJ 4 MG/2 ML VIAL IV PUSH (15:52)
[2023-01-03] MEDS: MORPHINE SULFATE (*CRX) 2 MG/ML INJ IV PUSH (15:52)
[2023-01-03 15:59] LABS: Reflex Lactic Acid Yes or No Add Lactic
--- NOTE | 2023-01-03 16:29 | PM.IMHP ---
H&P: HPI History of Present Illness Date/Time: 01/03/23 16:30 Chief Complaint: Altered mental status. Narrative: This is an 82-year-old female with PMFSH Past Medical History Medical History Cancer of right breast Status post lumpectomy and antiestrogen therapy. Chronic kidney disease Chronic obstructive pulmonary disease Essential hypertension Gastroesophageal reflux disease without esophagitis Mixed hyperlipidemia Panlobular emphysema Paroxysmal atrial fibrillation Primary biliary cirrhosis Tobacco use Tobacco use disorder Type 2 diabetes mellitus Surgical History Surgical History History of right mastectomy History of right-sided carotid endarterectomy Family History Family History Sibling Family history of blood dyscrasia Cerebrovascular accident Family history of malignant neoplasm Patient's sister is Father Cerebrovascular accident Patient's father is Mother Family history of diabetes mellitus in first degree relative Patient's mother is Social History Social History Social History: Surrogate medical decision maker: Cora Sanderson, daughter. Code status: Full code. Years smoked: 65 Smoking status: Current every day smoker Tobacco type: cigarettes Alcohol intake: never Substance use: never Substance use type: does not use Lack of Transportation: No Lack of Food: Never True Current Housing: I Have Housing Concerned About Future Housing: No Difficulty Paying Gas/Electric Bills: No Difficulty Paying for Meds: No Currently Unemployed: No Education: Decline to Answer Difficulty w/ Childcare or Family Care: No Additional living arrangements comments: Patient lives in her own home in [place]. She is . Has 2 sons and 2 daughters. Spiritual care concerns: No Meds Home Medications and Allergies Home Medications Medication Instructions Recorded Confirmed Type aspirin 81 mg tablet,delayed 81 mg PO DAILY 07/11/19 10/31/22 History release (Aspir-) candesartan 32 mg tablet (Atacand) 32 mg PO DAILY 02/05/21 10/31/22 History carvedilol 25 mg tablet (Coreg) 25 mg PO DAILY 02/05/21 10/31/22 History hydrochlorothiazide 12.5 mg capsule 12.5 mg PO DAILY 02/05/21 10/31/22 History pantoprazole 40 mg tablet,delayed 40 mg PO DAILY 02/05/21 10/31/22 History release (Protonix) simvastatin 80 mg tablet 80 mg PO DAILY 02/05/21 10/31/22 History sitagliptin phosphate 100 mg 100 mg PO DAILY 02/05/21 10/31/22 History tablet (Januvia) ursodiol 250 mg tablet (NOEL 250) 250 mg PO DAILY 02/05/21 10/31/22 History Allergies Allergy/AdvReac Type Severity Reaction Status Date / Time metformin Allergy Unknown Diarrhea Verified 01/03/23 14:07 Vital Signs Vital Signs - 24 hr 01/03/23 12:27 01/03/23 12:38 01/03/23 12:45 Temperature 99.2 F Pulse Rate 109 H 110 H 107 H Respiratory Rate 26 H 39 H 40 H Blood Pressure 83/42 L 86/42 L Pulse Oximetry 87 L 95 94 Oxygen Delivery Room Air Oxygen Flow Rate 01/03/23 12:46 01/03/23 12:55 01/03/23 13:01 Temperature Pulse Rate 107 H 97 99 Respiratory Rate 41 H 35 H 37 H Blood Pressure 76/51 L 81/40 L 75/45 L Pulse Oximetry 94 95 93 Oxygen Delivery Oxygen Flow Rate 01/03/23 13:07 01/03/23 13:15 01/03/23 13:30 Temperature 97.9 F Pulse Rate 105 H 92 Respiratory Rate 37 H 36 H Blood Pressure 73/45 L 104/47 L Pulse Oximetry 94 94 95 Oxygen Delivery Nasal Cannula Oxygen Flow Rate 2 01/03/23 13:45 01/03/23 14:00 01/03/23 14:15 Temperature Pulse Rate 95 92 82 Respiratory Rate 33 H 35 H 31 H Blood Pressure 73/35 L 77/56 L 70/54 L Pulse Oximetry 98 88 L 95 Oxygen Delivery Oxygen Flow Rate 01/03/23 13:02
--- NOTE | 2023-01-03 17:30 | ADMGEN ---
This patient, Ariadna Anders, was admitted to [facility] Surg Room 327-01. Patient/family oriented to hospital policies and general routines including ID bracelet, bed and alarms, visiting hours, pain management, procedures, bathroom and other care routines, personal items, smoking policy, room service/diet, and visiting hours. Information on how to activate the Rapid Response Team has been discussed. Patient/Family are encouraged to report perceived risks to care and to ask questions if they do not understand what they are told or what they should do.
--- NOTE | 2023-01-03 23:01 | PM.DDS ---
Discharge Summary Date and Time Date of : 01/03/23 Time of : 19:03 Provider Pronounced By: Maggie Moreno Probable Cause of Probable Cause of : Sepsis, multiorgan failure. Summary Hospital Course: This is an 82-year-old female smoker with history of right-sided breast cancer status post lumpectomy and anti hormone therapy at age 68, primary biliary cirrhosis, hypertension, dyslipidemia, type 2 diabetes mellitus, and GERD who presented to the emergency department via EMS from a local nursing facility for evaluation altered mental status and low oxygen levels. She met sepsis criteria on arrival and labs showed evidence of multiorgan failure. While in the ED she had several episodes of diarrhea concerning for C difficile. After discussions with the patient's family it was felt that she would not want aggressive treatment due to a marked decline in health the last 6 months and family members opted for comfort measures only. Morphine, Ativan, and oxygen were available as needed and she comfortably with family at bedside. Additional Data Confirmation of as documented by pronouncing clinician: Pupillary Reflex, Palpable Pulses, Response to Stimuli, Heart Tones and Breath Sounds Name of Provider Notified: Dr. Cortez Time Provider Notified: 19:07 Provider Requests Autopsy: No An/Sqq 89(V)15 Sonar System Journeyman Notified: Yes Date [facility] Notified of : 01/03/23 Time [facility] Notified of : 19:11
--- NOTE | 2023-01-03 23:01 | PM.IMHP ---
H&P: HPI History of Present Illness Date/Time: 01/03/23 16:30 Chief Complaint: Altered mental status and low oxygen levels. Narrative: This is an 82-year-old female smoker with history of right-sided breast cancer status post lumpectomy and anti hormone therapy at age 68, primary biliary cirrhosis, hypertension, dyslipidemia, type 2 diabetes mellitus, and GERD who presented to the emergency department via EMS from a local nursing facility for evaluation altered mental status and low oxygen levels. She is alert but not oriented and she only says a few words during my time with her. As such essentially all of the following history is obtained via a review of her EMR as well as discussions with her family members and reports from the nursing facility. The patient is known to myself and the hospitalist service from an admission in early October of this year at which time she was admitted with failure to thrive and generalized weakness after presenting with a fall. Family member she had been going downhill for 6 months or more prior to that admission. On discharge she was sent to a skilled facility where it sounds like she has continued to decline. She was reportedly in her usual state of chronically poor health this morning at 07:30 and approximately 2 hours later she was found to be confused and she seemed to be short of breath. EMS was summoned on their arrival her blood pressure was in the 70s to 80s systolic. She was given IV fluid boluses however she remains hypotensive. She met sepsis criteria on arrival and labs show evidence of multiorgan failure. While in the ED she had several episodes of diarrhea concerning for C difficile and she had a tender and distended abdomen. After discussions with the patient's family it was felt that she would not want aggressive treatment due to recent but significant decline and they opted for comfort measures only. At the time my evaluation the patient is alert but says few words. She tells me that she is feeling fine, voices no complaints, but she has grunting respirations and appears to be uncomfortable. Review of Systems Review of Systems: Unable to be obtained given clinical condition. [facility] Past Medical History Medical History Cancer of right breast Status post lumpectomy and antiestrogen therapy. Chronic kidney disease Chronic obstructive pulmonary disease Essential hypertension Gastroesophageal reflux disease without esophagitis Mixed hyperlipidemia Panlobular emphysema Paroxysmal atrial fibrillation Primary biliary cirrhosis Tobacco use Tobacco use disorder Type 2 diabetes mellitus Surgical History Surgical History History of right mastectomy History of right-sided carotid endarterectomy Family History Family History Sibling Family history of blood dyscrasia Cerebrovascular accident Family history of malignant neoplasm Patient's sister is Father Cerebrovascular accident Patient's father is Mother Family history of diabetes mellitus in first degree relative Patient's mother is Social History Social History (Updated 01/05/23 @ 15:40 by Kiesha Guevara PA-C) Social History: Surrogate medical decision maker: Cora Sanderson, daughter. Code status: Do not resuscitate. Years smoked: 65 Smoking status: Former smoker Tobacco type: cigarettes Alcohol intake: never Substance use: never Substance use type: does not use Lack of Transportation: No Lack of Food: Never True Current Housing: I Have Housing Concerned About Future Housing: No Difficulty Paying Gas/Electric Bills: No Difficulty Paying for Meds: No Currently Unemployed: No Education: Decline to Answer Difficulty w/ Childcare or Family Care: No Additional living arrange
== END 2023-01-03 19:03 | disposition expired | DRG 871 ==
LOC: ANHED 15:54 → ANH3MEDSUR 17:07
PROVIDERS: Admitting Provider Family Medicine; Emergency Provider Emergency Medicine; Visit Provider Physician Assistant
DX: A41.9 Sepsis, unspecified organism (principal); R65.21 Severe sepsis with septic shock; N17.9 Acute kidney failure, unspecified; D63.1 Anemia in chronic kidney disease; E11.22 Type 2 diabetes mellitus with diabetic chronic kidney disease; E78.2 Mixed hyperlipidemia; F17.210 Nicotine dependence, cigarettes, uncomplicated; I12.9 Hypertensive chronic kidney disease with stage 1 through stage 4 chronic kidney disease, or unspecified chronic kidney disease; J43.1 Panlobular emphysema; K21.9 Gastro-esophageal reflux disease without esophagitis; K74.60 Unspecified cirrhosis of liver; I48.0 Paroxysmal atrial fibrillation; N18.9 Chronic kidney disease, unspecified; R19.7 Diarrhea, unspecified; Z66 Do not resuscitate; Z79.82 Long term (current) use of aspirin; Z20.822 Contact with and (suspected) exposure to COVID-19; Z85.3 Personal history of malignant neoplasm of breast; Z79.84 Long term (current) use of oral hypoglycemic drugs
CPT/HCPCS: 36415; 36600; 71045; 80053; 81001; 82805; 83605; 83880; 84484; 85025; 85055; 85610; 85730; 86140; 87040; 87077; 87186; 87636; 93005; 96361; 96365; 96368; 96375; 99285; J1956; J2270; J2405; J2543; J7030